=== PATIENT | male | born 1980 | race Caucasian/White ===

== ENCOUNTER 2017-07-20 16:56 | Emergency (ER) | payer SELFPAY ==
[2017-07-20 17:41] VITALS: BP 148/92; PULSE 67; BMI 33.9
[2017-07-20 18:42] VITALS: TEMP 99
--- NOTE | 2017-07-20 18:42 | PDOC ---
History of Present Illness - General Chief Complaint: Injury Stated Complaint: FALL/INJURY Time Seen by Provider: 07/20/17 18:23 History Source: Patient Exam Limitations: No Limitations - History of Present Illness Initial Comments: 07/20/17 18:37 Out of shower, slipped and fell striking his nose against the radiator edge. Patient states teeth are and had no LOC. Had a history of nasal fracture and loss of some bone from the same many years ago. Denies exquisite pain and did not have profuse bleeding. Occurred: reports: just prior to arrival Severity: reports: mild, moderate Pain Location: reports: face, mouth Method of Injury: Yes: fall Modifying Factors: improves with: None Past History - Travel Traveled outside of the country in the last 30 days: No Close contact w/someone who was outside of country & ill: No - Past Medical History Allergies/Adverse Reactions: Allergies Allergy/AdvReac Type Severity Reaction Status Date / Time No Known Allergies Allergy Verified 07/20/17 17:41 Home Medications: Ambulatory Orders Amox-Tr/K Cl [Augmentin 875Mg Tablet] 1 tab PO BID #20 tablet 07/20/17 HTN: Yes - Suicide/Smoking/Psychosocial Hx Smoking History: Current every day smoker Number of Cigarettes Smoked Daily: 10 Information on smoking cessation initiated: No Hx Alcohol Use: No Drug/Substance Use Hx: No Substance Use Type: None Review of Systems - Review of Systems Able to Perform ROS?: Yes Is the patient limited Spanish proficient: Yes Constitutional: Yes: Symptoms Reported, See HPI HEENTM: Yes: Symptoms Reported, See HPI, Nose Pain, Mouth Swelling Respiratory: Yes: See HPI. No: Symptoms reported Integumentary: Yes: Symptoms Reported, See HPI All Other Systems: Reviewed and Negative *Physical Exam - Vital Signs Last Vital Signs Temp Pulse Resp BP Pulse Ox 0 F L 67 20 148/92 100 07/20/17 17:34 07/20/17 17:34 07/20/17 17:34 07/20/17 17:34 07/20/17 17:34 - Physical Exam General Appearance: Yes: Nourished, Appropriately Dressed, Apparent Distress, Mild Distress HEENT: positive: MIN, TMs Normal, Pharynx Normal, Sinus Tenderness (has tenderness and ecchymosis noted along the medial aspect of by dramatic arch left side. No crepitus step-offs, orbit is intact without crepitus or step-offs , range of motion intact to eyes.), Other (1 cm laceration at the bottom part of felt from and extending into left naris along the vestibule and above the hard palate. No obvious cartilage or bone exposed, no pulsatile bleeding, has no tenderness crepitus to nasal bone, dentition is intact without bleeding at any sites or loosening. Hard palate appears to be intact.). negative: Normal ENT Inspection Neck: positive: Supple, Other (, step-offs or deformity). negative: Tender, Lymphadenopathy (R), Lymphadenopathy (L) Respiratory/Chest: positive: Lungs Clear Musculoskeletal: positive: Normal Inspection Integumentary: positive: Normal Color, Other (stellate full thickness laceration runs along the frenulum and into inner aspect of left nostril to approximately first turbinate. 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 Mcghee who recommended repair with internal sutures and external sutures .. will Treat with antibiotics , given 2 Percocets for pain relief tonight, booster updated tonight. *DC/Admit/Observation/Transfer Diagnosis at time of Disposition: Complex laceration of nose Qualifiers: Encounter type: initial encounter Qualified Code(s): S01.21XA - Laceration without foreign body of nose, initial encounter - Discharge Dispostion Disposition: HOME Condition at time of disposition: Stable Admit: No - Patient Instructions Printed Discharge Instructions: DI for Laceration Repair -- Complex Suture Additional Instructions: Keep wound clean and dry Avoid strenuous activity/exercise to create a hot or sweaty environment until sutures are removed Reapply bacitracin ointment 2 times a day until sutures are removed Return to emergency Department or private physician in 5-7 days for suture removal May use Tylenol or Motrin for pain relief Percocet 1/2-1 tablet every 6 hours for severe pain understanding will make dizzy and sleepy Augmentin tablet 875 mg 1 tablet every 12 hours for one week Return immediately to emergency department for redness, swelling, pain, or signs of infection - Post Discharge Activity Forms/Work/School Notes: Back to Work
[2017-07-20] MEDS ORDERED: AMOX TR/POT CLAV 875MG/125MG TABLETS (FP) ONE (19:38)
[2017-07-20] MEDS ORDERED: AMOX TR/POT CLAV 875MG/125MG TABLETS (FP) PO ONE (19:43)
[2017-07-20] MEDS ORDERED: DIPHTH,PERTUSS(ACELL),TET 0.5 ML DISP.SYRIN IM ONE (19:43)
== END 2017-07-20 20:00 | disposition home or self-care (01) ==
LOC: JERFT 16:56
PROC: 09QKXZZ Repair Nasal Mucosa and Soft Tissue, External Approach (ICD-10-PCS; principal; 2017-07-20)
PROC: 3E0234Z Introduction of Serum, Toxoid and Vaccine into Muscle, Percutaneous Approach (ICD-10-PCS; 2017-07-20)
DX: S01.21XA Laceration without foreign body of nose, initial encounter (principal); W18.39XA Other fall on same level, initial encounter; Y93.89 Activity, other specified; Y92.9 Unspecified place or not applicable; F17.210 Nicotine dependence, cigarettes, uncomplicated
CPT/HCPCS: 90715; 99281-25